=== PATIENT | female | born 1945 | race Caucasian/White ===

== ENCOUNTER → 2017-01-31 | Outpatient (CLI) | payer OTHER ==
[~2017-01-31] MED LIST: ACYC200C4 PO; AMLO5TAB2 PO; AMOX1TAB12 PO; ASCO10004 PO; ASCO100072 PO; CEFD300C37 PO; CEPH-368 PO; CEPH-376 PO; DESO15CR10; DOXY100T PO; FENO160T PO; FURO-92 PO; FURO20TA3 PO; GABA600T2 PO; HYDR1TAB20 PO; INSU100C SQ-INSULIN; INSU100I17 SQ; INSU100V13 SC; KETO200T41 PO; LACT1CAP24 PO; LEVO137C2 PO; LEVO250T23 PO; LORA10CA PO; LOSA100T6 PO; MELO-184 PO; METF100010 PO; METH4TAB2 PO; MULT-717 PO; NYST60PO TP; ONDA-39 PO; OXYM30SP NS; POTA10TA90 PO; PRAV40TA2 PO; SERT100T5 PO; VITA1TAB43 PO
== END | disposition home or self-care (01) ==
LOC: WOUND 09:10
PROVIDERS: ATTEND Internal Medicine
DX: E11.622 Type 2 diabetes mellitus with other skin ulcer (principal); L97.821 Non-pressure chronic ulcer of other part of left lower leg limited to breakdown of skin; E11.51 Type 2 diabetes mellitus with diabetic peripheral angiopathy without gangrene; J44.9 Chronic obstructive pulmonary disease, unspecified; E03.9 Hypothyroidism, unspecified; E11.42 Type 2 diabetes mellitus with diabetic polyneuropathy; E66.01 Morbid (severe) obesity due to excess calories; E11.22 Type 2 diabetes mellitus with diabetic chronic kidney disease; I13.0 Hypertensive heart and chronic kidney disease with heart failure and stage 1 through stage 4 chronic kidney disease, or unspecified chronic kidney disease; N18.9 Chronic kidney disease, unspecified; I50.9 Heart failure, unspecified; I27.2 Other secondary pulmonary hypertension; Z87.891 Personal history of nicotine dependence; Z85.3 Personal history of malignant neoplasm of breast; Z79.4 Long term (current) use of insulin
CPT/HCPCS: 11042; 11045; G0463; WOU0463

== ENCOUNTER 2017-02-21 16:17 | Emergency (ER) | payer OTHER ==
[~2017-02-21] VITALS: Ht 162.6 cm; Wt 123.0 kg
[2017-02-21] MEDS ORDERED: SODIUM CHLORIDE FLUSH 10ML SYR IVF ONE (16:30)
[2017-02-21 17:01] LABS: HEMATOCRIT 30.9 % (34.6-47.8); HEMOGLOBIN 10.1 g/dL (11.7-16.4)
[2017-02-21 17:07] LABS: ASPARTATE AMINO TRANSFERASE 16 U/L (15-37); BLOOD UREA NITROGEN 42 mg/dL (7-18)
[2017-02-21 17:12] LABS: IS PT STATUS REG ER OR PRE ER? YES
[2017-02-21] MEDS ORDERED: FUROSEMIDE 40 MG/4 ML IV ONE (18:30)
[2017-02-21] MEDS ORDERED: NAPROXEN 500 MG TABLET PO ONE (19:00)
[2017-02-21] MEDS ORDERED: FUROSEMIDE 40 MG/4 ML ONE (19:01)
[2017-02-21 19:21] VITALS: BP 146/82
== END 2017-02-21 19:23 | disposition home or self-care (01) ==
LOC: ED 17:19
DX: R60.0 Localized edema (principal); I12.9 Hypertensive chronic kidney disease with stage 1 through stage 4 chronic kidney disease, or unspecified chronic kidney disease; E11.22 Type 2 diabetes mellitus with diabetic chronic kidney disease; N18.9 Chronic kidney disease, unspecified; J44.9 Chronic obstructive pulmonary disease, unspecified; Z87.891 Personal history of nicotine dependence
CPT/HCPCS: 36415; 71010; 80053; 84439; 84443; 84484; 85025; 85610; 93005; 93970; 96374; 99285; J1940

== ENCOUNTER → 2017-03-07 | Outpatient (CLI) | payer OTHER ==
[~2017-03-07] MED LIST changes: +AMINOPHYLLINE 25 MG/ML, 10ML ONE; -MELO-184 PO; +MELO15TA24 PO; -ONDA-39 PO; +ONDA4TAB12 PO; +POTA10TA6 PO; -POTA10TA90 PO; +REGADENOSON 0.4 MG/5 ML SYRINGE ONE
== END | disposition home or self-care (01) ==
LOC: CFH 07:41
PROVIDERS: ATTEND Internal Medicine Cardiovascular Disease
DX: Z01.818 Encounter for other preprocedural examination (principal); I73.9 Peripheral vascular disease, unspecified; R06.02 Shortness of breath; I10 Essential (primary) hypertension; E66.9 Obesity, unspecified
CPT/HCPCS: 78452; 93017; A9502; J0280; J2785

== ENCOUNTER → 2017-03-14 | Outpatient (CLI) | payer OTHER ==
[~2017-03-14] MED LIST changes: -AMINOPHYLLINE 25 MG/ML, 10ML ONE; -REGADENOSON 0.4 MG/5 ML SYRINGE ONE
== END | disposition home or self-care (01) ==
LOC: PETCFH 07:51
PROVIDERS: ATTEND Specialist
DX: I25.10 Atherosclerotic heart disease of native coronary artery without angina pectoris (principal); I70.0 Atherosclerosis of aorta; K57.90 Diverticulosis of intestine, part unspecified, without perforation or abscess without bleeding; C50.411 Malignant neoplasm of upper-outer quadrant of right female breast
CPT/HCPCS: 78815; A9552

== ENCOUNTER → 2017-04-17 | Outpatient (CLI) | payer OTHER | END | disposition home or self-care (01) | LOC: CFH 08:40 | PROVIDERS: ATTEND Internal Medicine Nephrology | DX: I12.9 Hypertensive chronic kidney disease with stage 1 through stage 4 chronic kidney disease, or unspecified chronic kidney disease (principal); E11.22 Type 2 diabetes mellitus with diabetic chronic kidney disease; N32.89 Other specified disorders of bladder; R80.3 Bence Jones proteinuria; C80.1 Malignant (primary) neoplasm, unspecified; D64.9 Anemia, unspecified; E83.52 Hypercalcemia; M19.90 Unspecified osteoarthritis, unspecified site; G62.9 Polyneuropathy, unspecified; E03.9 Hypothyroidism, unspecified; E78.5 Hyperlipidemia, unspecified | CPT/HCPCS: 76770 ==

== ENCOUNTER 2017-09-08 12:27 | Observation (INO) | payer OTHER ==
[~2017-09-08] VITALS: Ht 162.6 cm; Wt 106.2 kg
[2017-09-08 13:12] LABS: BASOPHILS # (AUTO) 0.06 x10^3/uL (0-0.1); BASOPHILS % (AUTO) 1 % (0-1); EOSINOPHILS % (AUTO) 4 % (1-7); LYMPHOCYTES # (AUTO) 1.37 x10^3/uL (1-3.4); LYMPHOCYTES % (AUTO) 17 % (22-44); MD NO; MEAN CORPUSCULAR HEMOGLOBIN 28.3 pg (27.0-34.8); MEAN CORPUSCULAR HGB CONC 33.3 g/dL (32.4-35.8); MONOCYTES # (AUTO) 0.53 x10^3/uL (0.2-0.8); MONOCYTES % (AUTO) 7 % (2-9); NEUTROPHILS # (AUTO) 5.68 x10^3/uL (1.8-6.8); NEUTROPHILS % (AUTO) 72 % (42-75); PLATELET COUNT 265 x10^3/uL (130-400); RED BLOOD COUNT 3.68 x10^6/uL (3.82-5.3); RED CELL DISTRIBUTION WIDTH 14.3 % (9.6-15.2)
[2017-09-08 13:21] LABS: INTERNATIONAL NORMALIZED RATIO 1.01 (0.93-1.1); PROTHROMBIN TIME 10.5 Seconds (9.6-11.5)
[2017-09-08 13:24] LABS: ALANINE AMINOTRANSFERASE 25 U/L (12-78); ALBUMIN 3.5 g/dL (3.4-5.0); ANION GAP 10 mmol/L (5-15); CALCIUM 9.7 mg/dL (8.5-10.1); CHLORIDE 101 mmol/L (98-107); CREATININE 1.43 mg/dL (0.55-1.02)
[2017-09-08 13:28] LABS: ALKALINE PHOSPHATASE 72 U/L (45-117); BILIRUBIN,TOTAL 0.3 mg/dL (0.2-1.0)
[2017-09-08] MEDS ORDERED: SODIUM CHLORIDE FLUSH 10ML SYR IVF ONE (14:00)
[2017-09-08] MEDS ORDERED: VANCOMYCIN 2,000 MG in SODIUM CHLORIDE 0.9% 500 ML IV ONE (14:30)
[2017-09-08] MEDS ORDERED: PIPERACILLIN/TAZO/PMX 4.5GM 100 ML IVPB ONE (14:30)
[2017-09-08] MEDS ORDERED: VANCOMYCIN PER PHARMACY MC ONE (14:30)
[2017-09-08] MEDS ORDERED: ONDANSETRON 2MG/ML, 2ML IVPush PRN (15:00)
[2017-09-08] MEDS ORDERED: TAMSULOSIN 0.4 MG CAP.ER.24H PO ONE (15:00)
[2017-09-08] MEDS ORDERED: ACETAMINOPHEN 500 MG TABLET PO PRN (15:00)
[2017-09-08] MEDS ORDERED: FURO-93 PO (15:18)
[2017-09-08] MEDS ORDERED: TAMS0.4C2 PO (15:18)
[2017-09-08] MEDS ORDERED: GLIM4TAB2 PO (15:18)
[2017-09-08] MEDS ORDERED: ANAS1TAB3 PO (15:18)
[2017-09-08] MEDS ORDERED: PRAV80TA2 PO (15:18)
[2017-09-08] MEDS ORDERED: SERT100T5 PO (15:18)
[2017-09-08] MEDS ORDERED: LOSA25TA5 PO (15:18)
[2017-09-08] MEDS ORDERED: PIOG15TA22 PO (15:18)
[2017-09-08] MEDS ORDERED: OXYB5TAB33 PO (15:18)
[2017-09-08] MEDS ORDERED: HYDR-882 PO (15:18)
[2017-09-08 16:48] LABS: MICROSCOPIC NOT IND
[2017-09-08 16:52] LABS: CULTURE INDICATED? NO
[2017-09-08] MEDS: GABAPENTIN 300 MG CAPSULE PO SCH ×2 (17:13→21:18)
[2017-09-08] MEDS: HEPARIN 5,000 UNITS/ML, 1ML SQ SCH (17:13)
[2017-09-08] MEDS: OXYBUTYNIN CHLORIDE 5 MG TABLET PO SCH ×2 (17:14→21:18)
[2017-09-08 17:27] VITALS: BP 127/70
[2017-09-08] MEDS: INSULIN LISPRO 100 UNITS/ML, PEN SQ-INSULIN SCH ×2 (18:28→21:18)
[2017-09-08 18:45] VITALS: BP 125/73
[2017-09-08] MEDS: ACETAMINOPHEN 325 MG TABLET PO PRN (19:58)
[2017-09-08] MEDS: FENOFIBRATE 145 MG TABLET PO SCH (21:18)
[2017-09-08] MEDS: PRAVASTATIN 40 MG TABLET PO SCH (21:18)
[2017-09-09] MEDS: ACETAMINOPHEN 325 MG TABLET PO PRN (02:09)
[2017-09-09 03:07] VITALS: BP 156/70
[2017-09-09] MEDS: LEVOTHYROXINE 137 MCG TABLET PO SCH (05:36)
[2017-09-09] MEDS: HEPARIN 5,000 UNITS/ML, 1ML SQ SCH ×2 (05:36→16:32)
[2017-09-09] MEDS: INSULIN LISPRO 100 UNITS/ML, PEN SQ-INSULIN SCH ×4 (07:58→20:30)
[2017-09-09] MEDS: SERTRALINE 100MG TABLET PO SCH (07:59)
[2017-09-09] MEDS: OXYBUTYNIN CHLORIDE 5 MG TABLET PO SCH ×3 (07:59→20:15)
[2017-09-09] MEDS: LOSARTAN 25MG TABLET PO SCH (07:59)
[2017-09-09] MEDS: FUROSEMIDE 20 MG TABLET PO SCH (08:00)
[2017-09-09] MEDS: GABAPENTIN 300 MG CAPSULE PO SCH ×3 (08:01→20:16)
[2017-09-09 08:13] VITALS: BP 155/77
[2017-09-09] MEDS: ANASTROZOLE 1 MG TABLET PO SCH (09:13)
[2017-09-09 13:54] VITALS: BP 124/68
[2017-09-09] MEDS: FENOFIBRATE 145 MG TABLET PO SCH (20:16)
[2017-09-09] MEDS: PRAVASTATIN 40 MG TABLET PO SCH (20:16)
[2017-09-09 20:22] VITALS: BP 150/60
[2017-09-10 02:55] VITALS: BP 160/75
[2017-09-10] MEDS: HEPARIN 5,000 UNITS/ML, 1ML SQ SCH ×2 (05:23→18:23)
[2017-09-10] MEDS: LEVOTHYROXINE 137 MCG TABLET PO SCH (05:24)
[2017-09-10 07:57] VITALS: BP 150/64
[2017-09-10] MEDS: OXYBUTYNIN CHLORIDE 5 MG TABLET PO SCH ×3 (08:00→21:00)
[2017-09-10] MEDS: FUROSEMIDE 20 MG TABLET PO SCH (08:00)
[2017-09-10] MEDS: LOSARTAN 25MG TABLET PO SCH (08:00)
[2017-09-10] MEDS: GABAPENTIN 300 MG CAPSULE PO SCH ×3 (08:01→21:00)
[2017-09-10] MEDS: SERTRALINE 100MG TABLET PO SCH (08:01)
[2017-09-10] MEDS: INSULIN LISPRO 100 UNITS/ML, PEN SQ-INSULIN SCH ×4 (08:12→21:23)
[2017-09-10] MEDS: ANASTROZOLE 1 MG TABLET PO SCH (09:00)
[2017-09-10 11:13] VITALS: BP 159/74
[2017-09-10 15:40] VITALS: BP 166/81
[2017-09-10 20:46] VITALS: BP 153/83
[2017-09-10] MEDS: FENOFIBRATE 145 MG TABLET PO SCH (21:00)
[2017-09-10] MEDS: PRAVASTATIN 40 MG TABLET PO SCH (21:00)
[2017-09-11 03:46] VITALS: BP 175/85
[2017-09-11] MEDS: LEVOTHYROXINE 137 MCG TABLET PO SCH (05:11)
[2017-09-11] MEDS: HEPARIN 5,000 UNITS/ML, 1ML SQ SCH (05:12)
[2017-09-11 05:14] VITALS: BP 166/80
[2017-09-11 07:12] VITALS: BP 100/63
[2017-09-11] MEDS: ANASTROZOLE 1 MG TABLET PO SCH (08:35)
[2017-09-11] MEDS: INSULIN LISPRO 100 UNITS/ML, PEN SQ-INSULIN SCH ×2 (08:38→11:57)
[2017-09-11] MEDS: LOSARTAN 25MG TABLET PO SCH (08:39)
[2017-09-11] MEDS: OXYBUTYNIN CHLORIDE 5 MG TABLET PO SCH ×2 (08:40→16:12)
[2017-09-11] MEDS: FUROSEMIDE 20 MG TABLET PO SCH (08:40)
[2017-09-11] MEDS: GABAPENTIN 300 MG CAPSULE PO SCH ×2 (08:41→16:12)
[2017-09-11] MEDS: SERTRALINE 100MG TABLET PO SCH (08:41)
[2017-09-11] MEDS ORDERED: ANASTROZOLE 1 MG TABLET PO SCH (09:00)
== END 2017-09-11 17:25 | disposition home or self-care (01) ==
LOC: ED 13:28 → EDIP 14:38 → 4WST 16:14 → 3NW 09-10 11:03
PROVIDERS: ADMIT Internal Medicine; ATTEND Internal Medicine
DX: I89.0 Lymphedema, not elsewhere classified (principal); I73.9 Peripheral vascular disease, unspecified; E66.01 Morbid (severe) obesity due to excess calories; J44.0 Chronic obstructive pulmonary disease with (acute) lower respiratory infection; J15.9 Unspecified bacterial pneumonia; I27.21 Secondary pulmonary arterial hypertension; E11.42 Type 2 diabetes mellitus with diabetic polyneuropathy; E11.51 Type 2 diabetes mellitus with diabetic peripheral angiopathy without gangrene; I13.0 Hypertensive heart and chronic kidney disease with heart failure and stage 1 through stage 4 chronic kidney disease, or unspecified chronic kidney disease; N18.3 Chronic kidney disease, stage 3 (moderate); I50.9 Heart failure, unspecified; E78.5 Hyperlipidemia, unspecified; E11.22 Type 2 diabetes mellitus with diabetic chronic kidney disease; E03.9 Hypothyroidism, unspecified; F32.9 Major depressive disorder, single episode, unspecified; Q82.8 Other specified congenital malformations of skin; L01.00 Impetigo, unspecified; Z89.431 Acquired absence of right foot
CPT/HCPCS: 36415; 71045; 80053; 81003; 82962; 83605; 83880; 84145; 85025; 85610; 85730; 87040; 93005; 93922; 93971; 96365; 96366; 96367; 96372; 97161; 99285; G0378; G8978; G8979; G8980; J1644; J2543; J3370; J7040

== ENCOUNTER 2017-10-10 15:07 | Inpatient (IN) | payer OTHER ==
[~2017-10-10] VITALS: Ht 165.1 cm; Wt 104.0 kg
[~2017-10-10 15:07] MED LIST changes: +ANAS1TAB3 PO; +FURO-93 PO; +GLIM4TAB2 PO; +HYDR-882 PO; +LOSA25TA5 PO; +OXYB5TAB33 PO; +PIOG15TA22 PO; +PRAV80TA2 PO; +TAMS0.4C2 PO
[2017-10-10] MEDS ORDERED: SODIUM CHLORIDE 0.9% 1,000 ML IV ONE (15:22)
[2017-10-10] MEDS ORDERED: ACETAMINOPHEN 500 MG TABLET PO ONE (15:30)
[2017-10-10 15:59] LABS: MEAN CORPUSCULAR HEMOGLOBIN 27.8 pg (27.0-34.8); MEAN CORPUSCULAR HGB CONC 32.6 g/dL (32.4-35.8); MEAN CORPUSCULAR VOLUME 85.2 fL (80-100); MEAN PLATELET VOLUME 8.5 fL (7.4-10.4); PLATELET COUNT 290 x10^3/uL (130-400); RED BLOOD COUNT 4.03 x10^6/uL (3.82-5.3); RED CELL DISTRIBUTION WIDTH 13.9 % (9.6-15.2)
[2017-10-10 16:02] LABS: ALANINE AMINOTRANSFERASE 22 U/L (12-78); ALBUMIN 3.8 g/dL (3.4-5.0); ANION GAP 10 mmol/L (5-15); CALCIUM 9.9 mg/dL (8.5-10.1); CHLORIDE 100 mmol/L (98-107); CREATININE 1.52 mg/dL (0.55-1.02)
[2017-10-10 16:04] LABS: ALKALINE PHOSPHATASE 61 U/L (45-117); BILIRUBIN,TOTAL 0.3 mg/dL (0.2-1.0); TOTAL PROTEIN 7.7 g/dL (6.4-8.2)
[2017-10-10] MEDS ORDERED: ACETAMINOPHEN 500 MG TABLET ONE (16:05)
[2017-10-10] MEDS ORDERED: CEFTRIAXONE PMX 1GM/50ML 50 ML IV ONE (16:30)
[2017-10-10 16:37] LABS: MICROSCOPIC NOT IND
[2017-10-10 16:40] LABS: RAPID INFLUENZA A Negative (Negative); RAPID INFLUENZA B Negative (Negative)
[2017-10-10 16:42] LABS: MD YES
[2017-10-10 16:42] LABS: CULTURE INDICATED? NO
[2017-10-10] MEDS ORDERED: CEFTRIAXONE PMX 1GM/50ML 50 ML ONE (16:42)
[2017-10-10 16:45] LABS: <PLATELET ESTIMATE> ADEQUATE; <PLT MORPHOLOGY> NORMAL PLT MORPH; <RBC MORPHOLOGY> NORMAL; BAND#(MANUAL) 0.19 x10^3/uL; BANDS%(MANUAL) 1 % (0-7); LYMPH#(MANUAL) 0.57 x10^3/uL (1-3.4); LYMPHS% (MANUAL) 3 % (22-44); SEG#(MANUAL) 18.24 x10^3/uL (1.8-6.8); SEGS% (MANUAL) 96 % (42-75)
[2017-10-10] MEDS ORDERED: POLYETHYLENE GLYCOL 17 GM PACKET PO PRN (17:00)
[2017-10-10] MEDS ORDERED: BISACODYL 10 MG SUPP PR PRN (17:00)
[2017-10-10] MEDS ORDERED: ONDANSETRON ODT 4 MG PO PRN (17:00)
[2017-10-10] MEDS ORDERED: DOCUSATE 100 MG CAPSULE PO PRN (17:00)
[2017-10-10] MEDS ORDERED: ONDANSETRON 2MG/ML, 2ML IVPush PRN (17:00)
[2017-10-10 17:56] VITALS: BP 108/49
[2017-10-10] MEDS: SODIUM CHLORIDE 0.9% 1,000 ML IV SCH (18:04)
[2017-10-10] MEDS: HEPARIN 5,000 UNITS/ML, 1ML SQ SCH (18:13)
[2017-10-10 18:28] VITALS: BP 102/46
[2017-10-10] MEDS: SIMVASTATIN 40 MG TABLET PO SCH (19:54)
[2017-10-10] MEDS: OXYBUTYNIN CHLORIDE 5 MG TABLET PO SCH (19:54)
[2017-10-10] MEDS: GABAPENTIN 300 MG CAPSULE PO SCH (19:54)
[2017-10-10] MEDS: LACTOBACILLUS CHEW TABLET PO SCH (19:54)
[2017-10-10] MEDS: INSULIN LISPRO 100 UNITS/ML, PEN SQ-INSULIN SCH (20:33)
[2017-10-11 00:59] VITALS: BP 120/57
[2017-10-11] MEDS: HEPARIN 5,000 UNITS/ML, 1ML SQ SCH ×3 (02:19→18:26)
[2017-10-11] MEDS: SODIUM CHLORIDE 0.9% 1,000 ML IV SCH ×3 (02:19→22:58)
[2017-10-11 05:09] LABS: ALBUMIN 3.1 g/dL (3.4-5.0); ANION GAP 9 mmol/L (5-15); CALCIUM 9.3 mg/dL (8.5-10.1); CHLORIDE 105 mmol/L (98-107); MEAN CORPUSCULAR HEMOGLOBIN 27.9 pg (27.0-34.8); MEAN CORPUSCULAR HGB CONC 32.8 g/dL (32.4-35.8); MEAN CORPUSCULAR VOLUME 85.2 fL (80-100); MEAN PLATELET VOLUME 8.7 fL (7.4-10.4); PLATELET COUNT 239 x10^3/uL (130-400); RED BLOOD COUNT 3.71 x10^6/uL (3.82-5.3); RED CELL DISTRIBUTION WIDTH 13.9 % (9.6-15.2)
[2017-10-11 05:18] LABS: ALANINE AMINOTRANSFERASE 17 U/L (12-78); ALKALINE PHOSPHATASE 45 U/L (45-117); BILIRUBIN,TOTAL 0.3 mg/dL (0.2-1.0); CREATININE 1.39 mg/dL (0.55-1.02); FREE T4 (FREE THYROXINE) 0.87 ng/dL (0.76-1.46); THYROID STIMULATING HORMONE 0.117 mIU/L (0.358-3.740); TOTAL PROTEIN 6.9 g/dL (6.4-8.2)
[2017-10-11] MEDS: LEVOTHYROXINE 137 MCG TABLET PO SCH (05:18)
[2017-10-11 05:49] LABS: MD YES
[2017-10-11 05:50] LABS: <PLATELET ESTIMATE> ADEQUATE; <PLT MORPHOLOGY> NORMAL PLT MORPH; <RBC MORPHOLOGY> NORMAL; BAND#(MANUAL) 1.37 x10^3/uL; BANDS%(MANUAL) 6 % (0-7); LYMPHS% (MANUAL) 7 % (22-44); MONOS#(MANUAL) 0.23 x10^3/uL (0.3-2.7); MONOS% (MANUAL) 1 % (2-9); SEG#(MANUAL) 19.69 x10^3/uL (1.8-6.8); SEGS% (MANUAL) 86 % (42-75)
[2017-10-11] MEDS: ACETAMINOPHEN 325 MG TABLET PO PRN ×3 (06:39→18:26)
[2017-10-11] MEDS: ANASTROZOLE 1 MG TABLET PO SCH (07:51)
[2017-10-11] MEDS: GABAPENTIN 300 MG CAPSULE PO SCH ×3 (07:54→20:58)
[2017-10-11] MEDS: FENOFIBRATE 145 MG TABLET PO SCH (07:54)
[2017-10-11 07:56] VITALS: BP 131/65
[2017-10-11] MEDS: FUROSEMIDE 20 MG TABLET PO SCH (07:56)
[2017-10-11] MEDS: MULTIVITAMINS/MINERALS TABLET PO SCH (07:57)
[2017-10-11] MEDS: SENNA/DOCUSATE TABLET PO SCH (07:57)
[2017-10-11] MEDS: LACTOBACILLUS CHEW TABLET PO SCH ×2 (07:57→20:58)
[2017-10-11] MEDS: OXYBUTYNIN CHLORIDE 5 MG TABLET PO SCH ×3 (07:57→20:58)
[2017-10-11] MEDS: INSULIN LISPRO 100 UNITS/ML, PEN SQ-INSULIN SCH ×4 (08:41→20:59)
[2017-10-11] MEDS ORDERED: CEFTRIAXONE PMX 1GM/50ML 50 ML IV SCH (12:00)
[2017-10-11 12:39] VITALS: BP 162/71
[2017-10-11 14:14] VITALS: BP 109/65
[2017-10-11] MEDS ORDERED: VANCOMYCIN 2,000 MG in SODIUM CHLORIDE 0.9% 500 ML IV SCH (16:00)
[2017-10-11] MEDS ORDERED: VANCOMYCIN PER PHARMACY MC PRN (16:00)
[2017-10-11] MEDS ORDERED: PHARMACOKINETIC MONITORING MC PRN (16:00)
[2017-10-11] MEDS ORDERED: OMNIPAQUE 350 MG/ML, 100ML BOTTLE ONE (17:54)
[2017-10-11 18:15] VITALS: BP 159/78
[2017-10-11 18:43] VITALS: BP 99/60
[2017-10-11] MEDS: AMPICILLIN/SULBACTAM 3 GM in SODIUM CHLORIDE 0.9% 100 ML IV SCH (20:58)
[2017-10-11] MEDS: SIMVASTATIN 40 MG TABLET PO SCH (20:58)
[2017-10-12] VITALS (7 sets, daily range): BP systolic 123–210; BP diastolic 53–76
[2017-10-12] MEDS: AMPICILLIN/SULBACTAM 3 GM in SODIUM CHLORIDE 0.9% 100 ML IV SCH ×4 (02:21→21:49)
[2017-10-12] MEDS: HEPARIN 5,000 UNITS/ML, 1ML SQ SCH ×3 (02:21→17:12)
[2017-10-12 05:03] LABS: ALANINE AMINOTRANSFERASE 21 U/L (12-78); ALBUMIN 2.8 g/dL (3.4-5.0); ANION GAP 5 mmol/L (5-15); BASOPHILS % (AUTO) 0 % (0-1); CALCIUM 9.2 mg/dL (8.5-10.1); CHLORIDE 107 mmol/L (98-107); CREATININE 1.34 mg/dL (0.55-1.02); EOSINOPHILS # (AUTO) 0.01 x10^3/uL (0-0.4); EOSINOPHILS % (AUTO) 0 % (1-7); LYMPHOCYTES % (AUTO) 7 % (22-44); MD NO; MEAN CORPUSCULAR HEMOGLOBIN 28.1 pg (27.0-34.8); MEAN CORPUSCULAR HGB CONC 32.9 g/dL (32.4-35.8); MEAN CORPUSCULAR VOLUME 85.4 fL (80-100); MEAN PLATELET VOLUME 8.3 fL (7.4-10.4); MONOCYTES # (AUTO) 0.57 x10^3/uL (0.2-0.8); MONOCYTES % (AUTO) 4 % (2-9); NEUTROPHILS # (AUTO) 14.53 x10^3/uL (1.8-6.8); NEUTROPHILS % (AUTO) 89 % (42-75); PLATELET COUNT 220 x10^3/uL (130-400); RED BLOOD COUNT 3.61 x10^6/uL (3.82-5.3); RED CELL DISTRIBUTION WIDTH 14.3 % (9.6-15.2)
[2017-10-12 05:05] LABS: ALKALINE PHOSPHATASE 46 U/L (45-117); BILIRUBIN,TOTAL 0.5 mg/dL (0.2-1.0); TOTAL PROTEIN 6.8 g/dL (6.4-8.2); VANCOMYCIN,RANDOM 23.9 mcg/mL
[2017-10-12] MEDS: LEVOTHYROXINE 137 MCG TABLET PO SCH (05:27)
[2017-10-12] MEDS: ACETAMINOPHEN 325 MG TABLET PO PRN ×2 (06:42→21:57)
[2017-10-12] MEDS: INSULIN LISPRO 100 UNITS/ML, PEN SQ-INSULIN SCH ×4 (07:00→20:16)
[2017-10-12] MEDS: SODIUM CHLORIDE 0.9% 1,000 ML IV SCH ×2 (07:39→15:39)
[2017-10-12] MEDS: OXYBUTYNIN CHLORIDE 5 MG TABLET PO SCH ×3 (09:38→20:15)
[2017-10-12] MEDS: GABAPENTIN 300 MG CAPSULE PO SCH ×3 (09:38→20:15)
[2017-10-12] MEDS: LACTOBACILLUS CHEW TABLET PO SCH ×2 (09:38→20:15)
[2017-10-12] MEDS: FENOFIBRATE 145 MG TABLET PO SCH (09:38)
[2017-10-12] MEDS: SENNA/DOCUSATE TABLET PO SCH (09:38)
[2017-10-12] MEDS: FUROSEMIDE 20 MG TABLET PO SCH (09:38)
[2017-10-12] MEDS: MULTIVITAMINS/MINERALS TABLET PO SCH (09:38)
[2017-10-12] MEDS: ANASTROZOLE 1 MG TABLET PO SCH (10:22)
[2017-10-12] MEDS: VANCOMYCIN 2,000 MG in SODIUM CHLORIDE 0.9% 500 ML IV SCH (17:12)
[2017-10-12] MEDS: SIMVASTATIN 40 MG TABLET PO SCH (20:15)
[2017-10-12] MEDS: LABETALOL 5MG/ML, 20ML IVPush PRN (20:16)
[2017-10-13 00:36] VITALS: BP 153/69
[2017-10-13] MEDS: HEPARIN 5,000 UNITS/ML, 1ML SQ SCH ×3 (01:08→15:56)
[2017-10-13] MEDS: AMPICILLIN/SULBACTAM 3 GM in SODIUM CHLORIDE 0.9% 100 ML IV SCH ×4 (04:04→21:37)
[2017-10-13] MEDS: LEVOTHYROXINE 137 MCG TABLET PO SCH (05:28)
[2017-10-13] MEDS: OXYBUTYNIN CHLORIDE 5 MG TABLET PO SCH ×2 (07:39→15:55)
[2017-10-13] MEDS: GABAPENTIN 300 MG CAPSULE PO SCH ×2 (07:39→15:55)
[2017-10-13] MEDS: SENNA/DOCUSATE TABLET PO SCH (07:39)
[2017-10-13] MEDS: AMLODIPINE 5 MG TABLET PO SCH (07:40)
[2017-10-13] MEDS: MULTIVITAMINS/MINERALS TABLET PO SCH (07:40)
[2017-10-13] MEDS: FENOFIBRATE 145 MG TABLET PO SCH (07:40)
[2017-10-13] MEDS: FUROSEMIDE 20 MG TABLET PO SCH (07:40)
[2017-10-13] MEDS: LACTOBACILLUS CHEW TABLET PO SCH ×2 (07:40→20:37)
[2017-10-13] MEDS: INSULIN LISPRO 100 UNITS/ML, PEN SQ-INSULIN SCH ×4 (07:41→20:47)
[2017-10-13] MEDS: ANASTROZOLE 1 MG TABLET PO SCH (07:48)
[2017-10-13 07:54] LABS: ANION GAP 8 mmol/L (5-15); CALCIUM 9.4 mg/dL (8.5-10.1); CHLORIDE 105 mmol/L (98-107); CREATININE 1.16 mg/dL (0.55-1.02)
[2017-10-13 08:04] LABS: BASOPHILS # (AUTO) 0.02 x10^3/uL (0-0.1); BASOPHILS % (AUTO) 0 % (0-1); EOSINOPHILS # (AUTO) 0.04 x10^3/uL (0-0.4); EOSINOPHILS % (AUTO) 0 % (1-7); LYMPHOCYTES # (AUTO) 1.08 x10^3/uL (1-3.4); LYMPHOCYTES % (AUTO) 9 % (22-44); MD NO; MEAN CORPUSCULAR HEMOGLOBIN 27.7 pg (27.0-34.8); MEAN CORPUSCULAR HGB CONC 32.6 g/dL (32.4-35.8); MEAN CORPUSCULAR VOLUME 85.2 fL (80-100); MEAN PLATELET VOLUME 8.7 fL (7.4-10.4); MONOCYTES # (AUTO) 0.63 x10^3/uL (0.2-0.8); MONOCYTES % (AUTO) 5 % (2-9); NEUTROPHILS # (AUTO) 9.99 x10^3/uL (1.8-6.8); NEUTROPHILS % (AUTO) 85 % (42-75); PLATELET COUNT 238 x10^3/uL (130-400); RED BLOOD COUNT 3.55 x10^6/uL (3.82-5.3); RED CELL DISTRIBUTION WIDTH 14.2 % (9.6-15.2)
[2017-10-13 10:30] VITALS: BP 153/56
[2017-10-13 15:45] VITALS: BP 159/69
[2017-10-13 20:11] VITALS: BP 151/75
[2017-10-13] MEDS: SIMVASTATIN 40 MG TABLET PO SCH (20:38)
[2017-10-14] MEDS: OXYBUTYNIN CHLORIDE 5 MG TABLET PO SCH ×3 (00:01→16:03)
[2017-10-14] MEDS: GABAPENTIN 300 MG CAPSULE PO SCH ×3 (00:01→16:03)
[2017-10-14 00:30] VITALS: BP 161/73
[2017-10-14] MEDS: ACETAMINOPHEN 325 MG TABLET PO PRN ×3 (01:23→20:56)
[2017-10-14] MEDS: AMPICILLIN/SULBACTAM 3 GM in SODIUM CHLORIDE 0.9% 100 ML IV SCH ×4 (03:52→22:19)
[2017-10-14] MEDS: VANCOMYCIN 2,000 MG in SODIUM CHLORIDE 0.9% 500 ML IV SCH (04:50)
[2017-10-14] MEDS: LEVOTHYROXINE 137 MCG TABLET PO SCH (05:04)
[2017-10-14 05:22] LABS: CHLORIDE 103 mmol/L (98-107)
[2017-10-14 05:25] LABS: BASOPHILS # (AUTO) 0.03 x10^3/uL (0-0.1); BASOPHILS % (AUTO) 0 % (0-1); EOSINOPHILS # (AUTO) 0.18 x10^3/uL (0-0.4); EOSINOPHILS % (AUTO) 2 % (1-7); LYMPHOCYTES # (AUTO) 1.41 x10^3/uL (1-3.4); LYMPHOCYTES % (AUTO) 15 % (22-44); MD NO; MEAN CORPUSCULAR HEMOGLOBIN 28.2 pg (27.0-34.8); MEAN CORPUSCULAR HGB CONC 33.1 g/dL (32.4-35.8); MEAN CORPUSCULAR VOLUME 85.2 fL (80-100); MEAN PLATELET VOLUME 8.9 fL (7.4-10.4); MONOCYTES # (AUTO) 0.66 x10^3/uL (0.2-0.8); MONOCYTES % (AUTO) 7 % (2-9); NEUTROPHILS % (AUTO) 76 % (42-75); PLATELET COUNT 238 x10^3/uL (130-400); RED BLOOD COUNT 3.27 x10^6/uL (3.82-5.3); RED CELL DISTRIBUTION WIDTH 13.9 % (9.6-15.2)
[2017-10-14 05:37] LABS: ANION GAP 9 mmol/L (5-15); CALCIUM 9.6 mg/dL (8.5-10.1); CREATININE 1.12 mg/dL (0.55-1.02)
[2017-10-14 06:41] VITALS: BP 168/75
[2017-10-14] MEDS: INSULIN LISPRO 100 UNITS/ML, PEN SQ-INSULIN SCH ×4 (06:54→21:12)
[2017-10-14] MEDS: MULTIVITAMINS/MINERALS TABLET PO SCH (07:47)
[2017-10-14] MEDS: LACTOBACILLUS CHEW TABLET PO SCH ×2 (07:47→20:56)
[2017-10-14] MEDS: FUROSEMIDE 20 MG TABLET PO SCH (07:48)
[2017-10-14] MEDS: SENNA/DOCUSATE TABLET PO SCH (07:48)
[2017-10-14] MEDS: FENOFIBRATE 145 MG TABLET PO SCH (07:48)
[2017-10-14] MEDS: HEPARIN 5,000 UNITS/ML, 1ML SQ SCH ×3 (07:48→16:03)
[2017-10-14] MEDS: AMLODIPINE 5 MG TABLET PO SCH (07:48)
[2017-10-14] MEDS: ANASTROZOLE 1 MG TABLET PO SCH (07:56)
[2017-10-14 12:36] VITALS: BP 154/65
[2017-10-14 16:44] LABS: HEMOGLOBIN A1C 8.5 % (4.2-6.3)
[2017-10-14 18:38] VITALS: BP 96/58
[2017-10-14 19:33] VITALS: BP 123/68
[2017-10-14] MEDS: ATORVASTATIN 20 MG TABLET PO SCH (20:56)
[2017-10-15] MEDS: OXYBUTYNIN CHLORIDE 5 MG TABLET PO SCH ×4 (00:03→20:41)
[2017-10-15] MEDS: GABAPENTIN 300 MG CAPSULE PO SCH ×4 (00:03→20:41)
[2017-10-15] MEDS: AMPICILLIN/SULBACTAM 3 GM in SODIUM CHLORIDE 0.9% 100 ML IV SCH ×4 (04:03→23:45)
[2017-10-15 04:11] VITALS: BP 149/84
[2017-10-15 04:40] LABS: BASOPHILS # (AUTO) 0.04 x10^3/uL (0-0.1); BASOPHILS % (AUTO) 0 % (0-1); EOSINOPHILS # (AUTO) 0.44 x10^3/uL (0-0.4); EOSINOPHILS % (AUTO) 6 % (1-7); LYMPHOCYTES # (AUTO) 1.68 x10^3/uL (1-3.4); LYMPHOCYTES % (AUTO) 21 % (22-44); MD NO; MEAN CORPUSCULAR HEMOGLOBIN 28.1 pg (27.0-34.8); MEAN CORPUSCULAR VOLUME 85.2 fL (80-100); MEAN PLATELET VOLUME 8.3 fL (7.4-10.4); MONOCYTES # (AUTO) 0.64 x10^3/uL (0.2-0.8); MONOCYTES % (AUTO) 8 % (2-9); NEUTROPHILS # (AUTO) 5.32 x10^3/uL (1.8-6.8); NEUTROPHILS % (AUTO) 66 % (42-75); PLATELET COUNT 275 x10^3/uL (130-400); RED BLOOD COUNT 3.49 x10^6/uL (3.82-5.3); RED CELL DISTRIBUTION WIDTH 14.1 % (9.6-15.2)
[2017-10-15 04:48] LABS: ALBUMIN 2.2 g/dL (3.4-5.0); ANION GAP 5 mmol/L (5-15); CALCIUM 9.6 mg/dL (8.5-10.1); CHLORIDE 102 mmol/L (98-107)
[2017-10-15] MEDS: LEVOTHYROXINE 137 MCG TABLET PO SCH (05:16)
[2017-10-15 06:52] VITALS: BP 153/68
[2017-10-15] MEDS: INSULIN LISPRO 100 UNITS/ML, PEN SQ-INSULIN SCH ×4 (08:18→20:41)
[2017-10-15] MEDS: FUROSEMIDE 20 MG TABLET PO SCH (10:17)
[2017-10-15] MEDS: MULTIVITAMINS/MINERALS TABLET PO SCH (10:18)
[2017-10-15] MEDS: LACTOBACILLUS CHEW TABLET PO SCH ×2 (10:19→20:41)
[2017-10-15] MEDS: SENNA/DOCUSATE TABLET PO SCH (10:19)
[2017-10-15] MEDS: AMLODIPINE 5 MG TABLET PO SCH (10:20)
[2017-10-15] MEDS: DOXYCYCLINE 100MG TABLET PO SCH ×2 (11:01→20:41)
[2017-10-15] MEDS: ANASTROZOLE 1 MG TABLET PO SCH (12:17)
[2017-10-15 13:05] VITALS: BP 114/65
[2017-10-15 18:39] VITALS: BP 145/71
[2017-10-15] MEDS: ATORVASTATIN 20 MG TABLET PO SCH (20:42)
[2017-10-16 03:16] VITALS: BP 153/73
[2017-10-16 04:31] LABS: ALBUMIN 2.4 g/dL (3.4-5.0); ANION GAP 6 mmol/L (5-15); CALCIUM 9.7 mg/dL (8.5-10.1); CHLORIDE 99 mmol/L (98-107); CREATININE 1.16 mg/dL (0.55-1.02)
[2017-10-16 04:38] LABS: BASOPHILS # (AUTO) 0.09 x10^3/uL (0-0.1); BASOPHILS % (AUTO) 1 % (0-1); EOSINOPHILS # (AUTO) 0.56 x10^3/uL (0-0.4); EOSINOPHILS % (AUTO) 6 % (1-7); LYMPHOCYTES # (AUTO) 1.84 x10^3/uL (1-3.4); LYMPHOCYTES % (AUTO) 18 % (22-44); MD NO; MEAN CORPUSCULAR HEMOGLOBIN 27.9 pg (27.0-34.8); MEAN CORPUSCULAR HGB CONC 32.8 g/dL (32.4-35.8); MEAN CORPUSCULAR VOLUME 85.2 fL (80-100); MEAN PLATELET VOLUME 8.4 fL (7.4-10.4); MONOCYTES # (AUTO) 0.86 x10^3/uL (0.2-0.8); MONOCYTES % (AUTO) 8 % (2-9); NEUTROPHILS # (AUTO) 6.94 x10^3/uL (1.8-6.8); NEUTROPHILS % (AUTO) 67 % (42-75); PLATELET COUNT 315 x10^3/uL (130-400); RED BLOOD COUNT 3.46 x10^6/uL (3.82-5.3); RED CELL DISTRIBUTION WIDTH 13.8 % (9.6-15.2)
[2017-10-16] MEDS: AMPICILLIN/SULBACTAM 3 GM in SODIUM CHLORIDE 0.9% 100 ML IV SCH ×3 (06:04→17:02)
[2017-10-16] MEDS: LEVOTHYROXINE 137 MCG TABLET PO SCH (06:05)
[2017-10-16 08:19] VITALS: BP 153/81
[2017-10-16] MEDS: SENNA/DOCUSATE TABLET PO SCH (09:00)
[2017-10-16] MEDS: INSULIN LISPRO 100 UNITS/ML, PEN SQ-INSULIN SCH ×4 (10:04→21:51)
[2017-10-16] MEDS: LACTOBACILLUS CHEW TABLET PO SCH ×2 (10:07→21:38)
[2017-10-16] MEDS: DOXYCYCLINE 100MG TABLET PO SCH ×2 (10:07→21:38)
[2017-10-16] MEDS: OXYBUTYNIN CHLORIDE 5 MG TABLET PO SCH ×3 (10:07→21:38)
[2017-10-16] MEDS: GABAPENTIN 300 MG CAPSULE PO SCH ×3 (10:07→21:38)
[2017-10-16] MEDS: FUROSEMIDE 20 MG TABLET PO SCH (10:07)
[2017-10-16] MEDS: ANASTROZOLE 1 MG TABLET PO SCH (10:11)
[2017-10-16] MEDS: AMLODIPINE 5 MG TABLET PO SCH (10:49)
[2017-10-16] MEDS: MULTIVITAMINS/MINERALS TABLET PO SCH (10:49)
[2017-10-16 13:05] VITALS: BP 118/72
[2017-10-16 20:05] VITALS: BP 153/72
[2017-10-16] MEDS: ATORVASTATIN 20 MG TABLET PO SCH (21:38)
[2017-10-17] MEDS: AMPICILLIN/SULBACTAM 3 GM in SODIUM CHLORIDE 0.9% 100 ML IV SCH ×4 (00:16→17:02)
[2017-10-17 02:01] VITALS: BP 172/67
[2017-10-17] MEDS: LABETALOL 5MG/ML, 20ML IVPush PRN (02:57)
[2017-10-17 04:16] LABS: BASOPHILS # (AUTO) 0.04 x10^3/uL (0-0.1); BASOPHILS % (AUTO) 0 % (0-1); EOSINOPHILS # (AUTO) 0.61 x10^3/uL (0-0.4); EOSINOPHILS % (AUTO) 4 % (1-7); LYMPHOCYTES # (AUTO) 1.91 x10^3/uL (1-3.4); LYMPHOCYTES % (AUTO) 14 % (22-44); MD NO; MEAN CORPUSCULAR HEMOGLOBIN 27.6 pg (27.0-34.8); MEAN CORPUSCULAR HGB CONC 32.8 g/dL (32.4-35.8); MEAN CORPUSCULAR VOLUME 84.1 fL (80-100); MONOCYTES # (AUTO) 0.96 x10^3/uL (0.2-0.8); MONOCYTES % (AUTO) 7 % (2-9); NEUTROPHILS % (AUTO) 75 % (42-75); PLATELET COUNT 360 x10^3/uL (130-400); RED BLOOD COUNT 3.49 x10^6/uL (3.82-5.3); RED CELL DISTRIBUTION WIDTH 13.1 % (9.6-15.2)
[2017-10-17 04:28] LABS: ANION GAP 7 mmol/L (5-15); CALCIUM 9.8 mg/dL (8.5-10.1); CHLORIDE 97 mmol/L (98-107)
[2017-10-17 04:30] LABS: CREATININE 1.24 mg/dL (0.55-1.02)
[2017-10-17] MEDS: LEVOTHYROXINE 137 MCG TABLET PO SCH (06:06)
[2017-10-17 07:12] VITALS: BP 144/76
[2017-10-17] MEDS: FUROSEMIDE 20 MG TABLET PO SCH (08:37)
[2017-10-17] MEDS: LACTOBACILLUS CHEW TABLET PO SCH ×2 (08:37→21:08)
[2017-10-17] MEDS: MULTIVITAMINS/MINERALS TABLET PO SCH (08:37)
[2017-10-17] MEDS: AMLODIPINE 5 MG TABLET PO SCH (08:38)
[2017-10-17] MEDS: DOXYCYCLINE 100MG TABLET PO SCH ×2 (08:38→21:07)
[2017-10-17] MEDS: GABAPENTIN 300 MG CAPSULE PO SCH ×3 (08:38→21:07)
[2017-10-17] MEDS: OXYBUTYNIN CHLORIDE 5 MG TABLET PO SCH ×3 (08:38→21:08)
[2017-10-17] MEDS: SENNA/DOCUSATE TABLET PO SCH (09:00)
[2017-10-17] MEDS ORDERED: hydrOXyzine 50MG TABLET PO PRN (09:30)
[2017-10-17] MEDS ORDERED: DIPHENHYDRAMINE/ZINC CRM 2%, 30GM TP PRN (09:30)
[2017-10-17] MEDS: INSULIN LISPRO 100 UNITS/ML, PEN SQ-INSULIN SCH ×4 (09:43→21:09)
[2017-10-17] MEDS: ANASTROZOLE 1 MG TABLET PO SCH (12:05)
[2017-10-17 13:13] VITALS: BP 137/74
[2017-10-17] MEDS ORDERED: AMOX1TAB64 PO (14:17)
[2017-10-17] MEDS ORDERED: AMLO5TAB2 PO (14:17)
[2017-10-17] MEDS ORDERED: HYDR50TA13 PO (14:17)
[2017-10-17] MEDS ORDERED: DOXY100T PO (14:17)
[2017-10-17] MEDS: ATORVASTATIN 20 MG TABLET PO SCH (21:08)
[2017-10-17 21:43] VITALS: BP 126/62
[2017-10-18] MEDS: AMPICILLIN/SULBACTAM 3 GM in SODIUM CHLORIDE 0.9% 100 ML IV SCH ×3 (00:20→11:09)
[2017-10-18 03:23] VITALS: BP 156/73
[2017-10-18] MEDS: LEVOTHYROXINE 137 MCG TABLET PO SCH (05:43)
[2017-10-18 07:21] VITALS: BP 127/62
[2017-10-18] MEDS: OXYBUTYNIN CHLORIDE 5 MG TABLET PO SCH ×2 (07:51→15:26)
[2017-10-18] MEDS: SENNA/DOCUSATE TABLET PO SCH (07:51)
[2017-10-18] MEDS: AMLODIPINE 5 MG TABLET PO SCH (07:51)
[2017-10-18] MEDS: GABAPENTIN 300 MG CAPSULE PO SCH ×2 (07:52→15:26)
[2017-10-18] MEDS: MULTIVITAMINS/MINERALS TABLET PO SCH (07:52)
[2017-10-18] MEDS: DOXYCYCLINE 100MG TABLET PO SCH (07:52)
[2017-10-18] MEDS: FUROSEMIDE 20 MG TABLET PO SCH (07:52)
[2017-10-18] MEDS: LACTOBACILLUS CHEW TABLET PO SCH (07:52)
[2017-10-18] MEDS: INSULIN LISPRO 100 UNITS/ML, PEN SQ-INSULIN SCH ×2 (07:53→11:11)
[2017-10-18 08:01] LABS: BASOPHILS # (AUTO) 0.04 x10^3/uL (0-0.1); BASOPHILS % (AUTO) 0 % (0-1); EOSINOPHILS % (AUTO) 4 % (1-7); LYMPHOCYTES # (AUTO) 1.42 x10^3/uL (1-3.4); LYMPHOCYTES % (AUTO) 11 % (22-44); MD NO; MEAN CORPUSCULAR HGB CONC 33.3 g/dL (32.4-35.8); MEAN CORPUSCULAR VOLUME 84.1 fL (80-100); MEAN PLATELET VOLUME 8.1 fL (7.4-10.4); MONOCYTES # (AUTO) 0.81 x10^3/uL (0.2-0.8); MONOCYTES % (AUTO) 7 % (2-9); NEUTROPHILS # (AUTO) 9.82 x10^3/uL (1.8-6.8); NEUTROPHILS % (AUTO) 78 % (42-75); PLATELET COUNT 387 x10^3/uL (130-400); RED BLOOD COUNT 3.69 x10^6/uL (3.82-5.3); RED CELL DISTRIBUTION WIDTH 13.8 % (9.6-15.2)
[2017-10-18] MEDS: ANASTROZOLE 1 MG TABLET PO SCH (11:02)
[2017-10-18 15:45] VITALS: BP 123/61
== END 2017-10-18 16:18 | DRG 871 ==
LOC: ED 16:15 → EDIP 16:16 → ED 16:47 → 4WST 17:50 → 3NW 10-11 05:48
PROVIDERS: ADMIT Internal Medicine; ATTEND Internal Medicine
DX: A41.9 Sepsis, unspecified organism (principal); N17.0 Acute kidney failure with tubular necrosis; J96.21 Acute and chronic respiratory failure with hypoxia; E11.22 Type 2 diabetes mellitus with diabetic chronic kidney disease; E11.51 Type 2 diabetes mellitus with diabetic peripheral angiopathy without gangrene; E44.1 Mild protein-calorie malnutrition; I07.1 Rheumatic tricuspid insufficiency; J98.11 Atelectasis; I50.30 Unspecified diastolic (congestive) heart failure; I13.0 Hypertensive heart and chronic kidney disease with heart failure and stage 1 through stage 4 chronic kidney disease, or unspecified chronic kidney disease; L03.119 Cellulitis of unspecified part of limb; N61.0 Mastitis without abscess; J44.9 Chronic obstructive pulmonary disease, unspecified; N18.3 Chronic kidney disease, stage 3 (moderate); L01.00 Impetigo, unspecified; N32.81 Overactive bladder; E66.01 Morbid (severe) obesity due to excess calories; E03.9 Hypothyroidism, unspecified; E78.5 Hyperlipidemia, unspecified; F12.90 Cannabis use, unspecified, uncomplicated; F32.9 Major depressive disorder, single episode, unspecified; I35.8 Other nonrheumatic aortic valve disorders; Q82.8 Other specified congenital malformations of skin; I27.20 Pulmonary hypertension, unspecified; Z99.81 Dependence on supplemental oxygen; Z87.891 Personal history of nicotine dependence; Z82.49 Family history of ischemic heart disease and other diseases of the circulatory system; Z79.899 Other long term (current) drug therapy; Z79.811 Long term (current) use of aromatase inhibitors; Z68.34 Body mass index [BMI] 34.0-34.9, adult; Z79.84 Long term (current) use of oral hypoglycemic drugs; Z85.3 Personal history of malignant neoplasm of breast
CPT/HCPCS: 36415; 36600; 70450; 71045; 71260; 76642; 80048; 80053; 80202; 81003; 82040; 82803; 82962; 83036; 83605; 83735; 84100; 84439; 84443; 85025; 87040; 87400; 93306; 96361; 96365; J0295; J0696; J1644; J3370; Q0162; Q9967; J1815; J7030; J7040